=== PATIENT | female | born 1975 | race Caucasian/White ===

== ENCOUNTER 2016-09-12 09:26 | Emergency (ER) | payer OTHER ==
[~2016-09-12 09:26] MED LIST: FLEXERIL10 MG PO; LORTAB 5/500 TA1 TA1 PO; NO MEDICATIONS; PRENATAL1 TA1 PO
[2016-09-12 09:43] LABS: URINE SOURCE CLEAN CATCH
[2016-09-12 09:47] LABS: URINE APPEARANCE CLOUDY; URINE BLOOD 3+ (NEG); URINE COLOR BROWN; URINE GLUCOSE NEG (NORM); URINE KETONE NEG (NEG); URINE LEUKOCYTE ESTERASE 3+ (NEG); URINE NITRATE NEG (NEG); URINE PROTEIN 2+ (NEG)
[2016-09-12 10:01] LABS: MICRO INDICATED? YES; URINE BILIRUBIN NEG (NEG); URINE RBC INNUM /[HPF] (0-2)
[2016-09-12 10:02] LABS: URINE WBC 200-300 /[HPF] (0-5)
[2016-09-12 10:04] LABS: CULTURE INDICATED? YES; URINE BACTERIA 1+ (NEG); URINE SQUAMOUS EPITHELIAL CELL FEW /[HPF]; URINE TRANSITIONAL EPI CELLS FEW /[HPF]
== END 2016-09-12 10:26 | disposition home or self-care (01) ==
LOC: SED 09:26
PROVIDERS: Emergency Medicine
DX: N30.90 Cystitis, unspecified without hematuria (principal)
CPT/HCPCS: 81003; 84703; 87086; 87088; 87186; 99283